=== PATIENT | female | born 1945 | race Caucasian/White ===

== ENCOUNTER 2017-12-06 05:37 | Inpatient (IN) ==
[2017-12-09 11:48] VITALS: BP 128/61
== END 2017-12-09 12:30 | DRG 470 ==
LOC: N.OR 05:37 → N.SDSINP 06:30 → N.3E 11:59
PROVIDERS: ADMIT Orthopaedic Surgery; ATTEND Orthopaedic Surgery

== ENCOUNTER 2019-11-05 14:16 | Inpatient (IN) ==
[2019-11-05 15:30] LABS: Basophils % 0.1 % (0.0-0.8); Eosinophils # 0.3 10*3/uL (0.0-0.87); Eosinophils % 4.1 % (0.00-10.9); Immature Granulocytes % 1.2 %; Immature Granulocytes Absolute 0.09 #; Lymphocytes # 1.6 10*3/uL (1.4-4.0); Mean Corpuscular HGB Conc 27.2 GM/DL (32-36); Mean Corpuscular Volume 86.3 FL (87-102); Mean Platelet Volume 9.8 FL (9.6-12.0); Monocytes % 10.8 % (1.7-12.7); NRBC # 0.02 10*3/uL; Neutrophils % 62.8 % (38.7-73.9); Platelet Count 184 T/CUMM (130-400); Red Blood Count 1.75 MC/CUMM (3.8-5.5); Red Cell Distribution Width 16.6 % (9.3-17.3); White Blood Count 7.8 T/CUMM (4-12)
[2019-11-05 15:38] LABS: INR 1.4; PT Patient Result 14.6 SECS (9.8-11.9)
[2019-11-05 15:40] LABS: Hematocrit 15.1 VOL% (35.7-47.0); Hemoglobin 4.1 GM/DL (12.0-16.0)
[2019-11-05 15:47] LABS: Calcium 8.4 MG/DL (8.5-10.1); Osmolality,Calculated 288.4 MOS/KG (273-304)
[2019-11-05] MEDS ORDERED: GLUCAGON 1 MG VIAL IM PRN (20:34)
[2019-11-05] MEDS ORDERED: DEXTROSE 10% 250 ML BAG IV PRN (20:34)
[2019-11-05] MEDS ORDERED: ACETAMINOPHEN 325 MG TABLET PO PRN (20:34)
[2019-11-05] MEDS ORDERED: ONDANSETRON 4 MG/2 ML VIAL IV PRN (20:34)
[2019-11-05] MEDS: SODIUM CHLORIDE 0.9% 1,000 ML IV SCH (20:58)
[2019-11-05] MEDS ORDERED: FUROSEMIDE 20 MG/2 ML VIAL IV SCH (21:00)
[2019-11-05] MEDS ORDERED: PANTOPRAZOLE INJ 200 MG in SODIUM CHLORIDE 0.9% 250 ML IV SCH (21:00)
[2019-11-05] MEDS ORDERED: SODIUM CHLORIDE 0.9% 1,000 ML IV PRN ×3 (22:41→23:27)
[2019-11-05] MEDS: INSULIN LISPRO 100 UNIT/ML SUBCUT SCH (23:12)
[2019-11-06 01:42] LABS: Basophils % 0.2 % (0.0-0.8); Eosinophils # 0.5 10*3/uL (0.0-0.87); Eosinophils % 5.3 % (0.00-10.9); Immature Granulocytes % 0.6 %; Immature Granulocytes Absolute 0.06 #; Lymphocytes # 2.2 10*3/uL (1.4-4.0); Lymphocytes % 22.1 % (21.3-54.2); Mean Corpuscular HGB Conc 28.1 GM/DL (32-36); Mean Corpuscular Volume 83.6 FL (87-102); Mean Platelet Volume 9.9 FL (9.6-12.0); Monocytes % 11.3 % (1.7-12.7); NRBC # 0.02 10*3/uL; Neutrophils % 60.5 % (38.7-73.9); Platelet Count 199 T/CUMM (130-400); Red Blood Count 1.83 MC/CUMM (3.8-5.5); Red Cell Distribution Width 16.6 % (9.3-17.3); White Blood Count 9.8 T/CUMM (4-12)
[2019-11-06 01:48] LABS: Hematocrit 15.3 VOL% (35.7-47.0); Hemoglobin 4.3 GM/DL (12.0-16.0)
[2019-11-06 02:06] LABS: Calcium 8.3 MG/DL (8.5-10.1); Osmolality,Calculated 286.4 MOS/KG (273-304)
[2019-11-06 04:58] LABS: Hypochromasia 1+; Microcytosis 1+
[2019-11-06 04:59] LABS: Anisocytosis 1+; Ovalocytes Few; Platelet Estimate Adequate; Tear Drop Cells Slight
[2019-11-06] MEDS: INSULIN LISPRO 100 UNIT/ML SUBCUT SCH ×4 (10:34→21:18)
[2019-11-06 14:37] LABS: Hematocrit 27.4 VOL% (35.7-47.0); Hemoglobin 8.4 GM/DL (12.0-16.0)
[2019-11-06] MEDS ORDERED: tiZANidine 4 MG TABLET PO PRN (14:48)
[2019-11-06] MEDS: GABAPENTIN 300 MG CAPSULE PO SCH (17:08)
[2019-11-06] MEDS: carvediloL 12.5 MG TABLET PO SCH (17:09)
[2019-11-06] MEDS: SODIUM CHLORIDE 0.9% 1,000 ML IV SCH (18:17)
[2019-11-06] MEDS: PRAMIPEXOLE 0.25 MG TABLET PO SCH (21:19)
[2019-11-06] MEDS: FERROUS SULFATE 325 MG TABLET PO SCH (21:19)
[2019-11-06] MEDS: PANTOPRAZOLE 40 MG VIAL IV SCH (21:19)
[2019-11-07] MEDS: SODIUM CHLORIDE 0.9% 1,000 ML IV SCH (01:49)
[2019-11-07] MEDS: LEVOTHYROXINE 112 MCG TABLET PO SCH (05:42)
[2019-11-07 06:48] LABS: Basophils % 0.3 % (0.0-0.8); Eosinophils # 0.3 10*3/uL (0.0-0.87); Eosinophils % 3.7 % (0.00-10.9); Hematocrit 26.4 VOL% (35.7-47.0); Hemoglobin 7.8 GM/DL (12.0-16.0); Immature Granulocytes % 0.9 %; Immature Granulocytes Absolute 0.08 #; Lymphocytes # 1.1 10*3/uL (1.4-4.0); Lymphocytes % 12.8 % (21.3-54.2); Mean Corpuscular HGB Conc 29.5 GM/DL (32-36); Mean Corpuscular Volume 85.7 FL (87-102); Mean Platelet Volume 10.4 FL (9.6-12.0); Neutrophils % 74.3 % (38.7-73.9); Platelet Count 139 T/CUMM (130-400); Red Blood Count 3.08 MC/CUMM (3.8-5.5); Red Cell Distribution Width 16.1 % (9.3-17.3); White Blood Count 8.9 T/CUMM (4-12)
[2019-11-07 07:08] LABS: Calcium 7.5 MG/DL (8.5-10.1); Osmolality,Calculated 284.3 MOS/KG (273-304)
[2019-11-07] MEDS ORDERED: ALBUTEROL/IPRATROPIUM 3 ML NEB RESP TX PRN (08:50)
[2019-11-07] MEDS: INSULIN LISPRO 100 UNIT/ML SUBCUT SCH ×4 (09:38→21:37)
[2019-11-07] MEDS: LOSARTAN 50 MG TABLET PO SCH (09:39)
[2019-11-07] MEDS: carvediloL 12.5 MG TABLET PO SCH ×2 (09:39→16:25)
[2019-11-07] MEDS: FERROUS SULFATE 325 MG TABLET PO SCH ×2 (09:39→21:37)
[2019-11-07] MEDS: TAMOXIFEN 10 MG TABLET PO SCH (09:40)
[2019-11-07] MEDS: PANTOPRAZOLE 40 MG VIAL IV SCH ×2 (09:42→21:37)
[2019-11-07] MEDS: FUROSEMIDE 40 MG/4 ML VIAL IV SCH (09:45)
[2019-11-07] MEDS: GABAPENTIN 300 MG CAPSULE PO SCH (16:25)
[2019-11-07] MEDS: PRAMIPEXOLE 0.25 MG TABLET PO SCH (21:37)
[2019-11-08] MEDS: LEVOTHYROXINE 112 MCG TABLET PO SCH (06:16)
[2019-11-08] MEDS ORDERED: FUROSEMIDE 40 MG/4 ML VIAL IV SCH (09:00)
[2019-11-08] MEDS: INSULIN LISPRO 100 UNIT/ML SUBCUT SCH ×4 (09:47→21:52)
[2019-11-08] MEDS: FERROUS SULFATE 325 MG TABLET PO SCH ×2 (09:48→21:53)
[2019-11-08] MEDS: guaiFENesin 200 MG/10 ML UDCUP PO SCH ×2 (09:48→17:14)
[2019-11-08] MEDS: carvediloL 12.5 MG TABLET PO SCH ×2 (09:48→17:10)
[2019-11-08] MEDS: TAMOXIFEN 10 MG TABLET PO SCH (09:48)
[2019-11-08] MEDS: LOSARTAN 50 MG TABLET PO SCH (09:48)
[2019-11-08] MEDS: PANTOPRAZOLE 40 MG VIAL IV SCH ×2 (09:51→21:53)
[2019-11-08] MEDS: FUROSEMIDE 40 MG/4 ML VIAL IV SCH (09:56)
[2019-11-08] MEDS: GABAPENTIN 300 MG CAPSULE PO SCH (17:10)
[2019-11-08] MEDS: PRAMIPEXOLE 0.25 MG TABLET PO SCH (21:53)
[2019-11-09] MEDS: guaiFENesin 200 MG/10 ML UDCUP PO SCH ×2 (00:55→08:13)
[2019-11-09] MEDS: LEVOTHYROXINE 112 MCG TABLET PO SCH (05:47)
[2019-11-09 06:21] LABS: Basophils % 0.4 % (0.0-0.8); Eosinophils # 0.4 10*3/uL (0.0-0.87); Eosinophils % 6.3 % (0.00-10.9); Hematocrit 27.5 VOL% (35.7-47.0); Immature Granulocytes % 0.6 %; Immature Granulocytes Absolute 0.04 #; Lymphocytes # 1.3 10*3/uL (1.4-4.0); Lymphocytes % 19.9 % (21.3-54.2); Mean Corpuscular HGB Conc 29.1 GM/DL (32-36); Mean Corpuscular Volume 87.3 FL (87-102); Monocytes % 10.8 % (1.7-12.7); Platelet Count 138 T/CUMM (130-400); Red Blood Count 3.15 MC/CUMM (3.8-5.5); Red Cell Distribution Width 16.4 % (9.3-17.3); White Blood Count 6.7 T/CUMM (4-12)
[2019-11-09 06:52] LABS: Calcium 7.8 MG/DL (8.5-10.1); Osmolality,Calculated 282.3 MOS/KG (273-304)
[2019-11-09] MEDS: INSULIN LISPRO 100 UNIT/ML SUBCUT SCH ×2 (08:12→11:58)
[2019-11-09] MEDS: TAMOXIFEN 10 MG TABLET PO SCH (08:13)
[2019-11-09] MEDS: carvediloL 12.5 MG TABLET PO SCH (08:13)
[2019-11-09] MEDS: FUROSEMIDE 40 MG/4 ML VIAL IV SCH (08:13)
[2019-11-09] MEDS: PANTOPRAZOLE 40 MG VIAL IV SCH (08:13)
[2019-11-09] MEDS: LOSARTAN 50 MG TABLET PO SCH (08:14)
[2019-11-09] MEDS: FERROUS SULFATE 325 MG TABLET PO SCH (08:14)
[2019-11-09 11:53] VITALS: BP 145/62
[2019-11-11] MEDS ORDERED: BISACODYL 5 MG TABLET PO ONE (12:00)
[2019-11-11] MEDS ORDERED: POLYETHYLENE GLYCOL POWDER 255 GM BOTTLE PO ONE (18:00)
[2019-11-12] MEDS ORDERED: LACTATED RINGERS 1,000 ML IV SCH (12:30)
== END 2019-11-09 14:17 | disposition home health service (06) | DRG 803 ==
LOC: N.ED 14:16 → SUATTDRO 20:34 → N.EDINP 20:34 → N.TELEN 11-06 00:43
PROVIDERS: ADMIT Emergency Medicine; ATTEND Internal Medicine

== ENCOUNTER 2019-12-11 06:01 | Inpatient (IN) ==
[2019-12-05 16:23] LABS: Basophils # 0.1 10*3/uL (0.0-0.2); Basophils % 0.8 % (0.0-0.8); Eosinophils # 0.6 10*3/uL (0.0-0.87); Eosinophils % 6.9 % (0.00-10.9); Hematocrit 33.3 VOL% (35.7-47.0); Hemoglobin 9.7 GM/DL (12.0-16.0); Immature Granulocytes % 0.4 %; Immature Granulocytes Absolute 0.04 #; Lymphocytes # 2.5 10*3/uL (1.4-4.0); Lymphocytes % 26.9 % (21.3-54.2); Mean Corpuscular HGB Conc 29.1 GM/DL (32-36); Mean Corpuscular Volume 83.9 FL (87-102); Mean Platelet Volume 10.2 FL (9.6-12.0); Monocytes % 10.5 % (1.7-12.7); Neutrophils % 54.5 % (38.7-73.9); Platelet Count 236 T/CUMM (130-400); Red Blood Count 3.97 MC/CUMM (3.8-5.5); Red Cell Distribution Width 15.2 % (9.3-17.3); White Blood Count 9.2 T/CUMM (4-12)
[~2019-12-11 06:01] MED LIST: ALVIMOPAN 12 MG CAPSULE ONE; ALVIMOPAN 12 MG CAPSULE PO ONE; ERTAPENEM 1,000 MG VIAL ONE; ERTAPENEM 1,000 MG in SODIUM CHLORIDE 0.9% 100 ML IV ONE
[2019-12-11] MEDS ORDERED: ROPIVACAINE 0.5% 30 ML VIAL ONE (06:28)
[2019-12-11] MEDS ORDERED: DEXAMETHASONE 4 MG/1 ML VIAL ONE (06:29)
[2019-12-11] MEDS ORDERED: LIDOCAINE 1% 5 ML VIAL ONE (06:29)
[2019-12-11] MEDS ORDERED: LACTATED RINGERS 1,000 ML IV SCH (07:00)
[2019-12-11] MEDS ORDERED: PHENYLEPHRINE 10 MG/1 ML VIAL IV ONE (07:51)
[2019-12-11] MEDS ORDERED: INDOCYANINE GREEN 25 MG VIAL IV ONE (07:52)
[2019-12-11] MEDS ORDERED: TISSUE ADHESIVE 1 EACH APPLICATOR TOP ONE (09:00)
[2019-12-11 09:25] LABS: Apearance,Urine CLEAR (Clear); Bilirubin,Urine Negative (Negative); Blood, Urine Negative (Negative); Glucose,Urine (UA) 150 mg/dL (Negative); Hyaline Casts,Urine 6 /LPF (0-3); Ketones,Urine Negative (Negative); Mucus,Urine Occasional /LPF (Occasional); Nitrite,Urine Negative (Negative); Protein,Urine Negative; Squamous Epithelial Cell,Urine Occasional /HPF (0-10); Urine Color Yellow (Yellow); Urine Specific Gravity 1.011 (1.001-1.035); Urine Urobilinogen < 2.0 EU/DL (0.2-1.0)
[2019-12-11] MEDS ORDERED: ALBUMIN 5% 12.5 GM/250 ML VIAL IV ONE (09:28)
[2019-12-11] MEDS ORDERED: SEVOFLURANE 1 UNIT/15 MINUTE INH ONE (09:28)
[2019-12-11] MEDS ORDERED: LIDOCAINE 2% 5 ML VIAL ONE (09:28)
[2019-12-11] MEDS ORDERED: MIDAZOLAM 2 MG/2 ML VIAL ONE (09:28)
[2019-12-11] MEDS ORDERED: propofoL 200 MG/20 ML VIAL IV ONE (09:28)
[2019-12-11] MEDS ORDERED: fentaNYL 250 MCG/5 ML VIAL ONE (09:28)
[2019-12-11] MEDS ORDERED: ONDANSETRON 4 MG/2 ML VIAL IV PRN ×2 (09:29→10:55)
[2019-12-11] MEDS ORDERED: HYDROmorphone 2 MG/1 ML VIAL IV PRN ×2 (09:29→10:55)
[2019-12-11] MEDS ORDERED: ePHEDrine 50 MG/ML VIAL ONE (09:29)
[2019-12-11] MEDS ORDERED: NEOSTIGMINE 10 MG/10 ML VIAL ONE (09:29)
[2019-12-11] MEDS ORDERED: PROMETHAZINE INJ 25 MG in SODIUM CHLORIDE 0.9% 50 ML IV PRN (09:29)
[2019-12-11] MEDS ORDERED: GLYCOPYRROLATE 0.4 MG/2 ML VIAL ONE (09:29)
[2019-12-11] MEDS ORDERED: ROCURONIUM 100 MG/10 ML VIAL IV ONE (09:29)
[2019-12-11] MEDS ORDERED: SUCCINYLCHOLINE 200 MG/10 ML VIAL ONE (09:29)
[2019-12-11] MEDS ORDERED: diphenhydrAMINE 50 MG/1 ML VIAL IV PRN (09:29)
[2019-12-11] MEDS ORDERED: PHENYLEPHRINE 1 MG/10 ML SYRINGE IV ONE (09:29)
[2019-12-11] MEDS ORDERED: MEPERIDINE 25 MG/1 ML VIAL ONE ×2 (09:56→10:22)
[2019-12-11] MEDS ORDERED: ONDANSETRON 4 MG/2 ML VIAL ONE (09:56)
[2019-12-11] MEDS: MEPERIDINE 25 MG/1 ML VIAL IV PRN ×2 (10:00→10:25)
[2019-12-11] MEDS ORDERED: PROMETHAZINE 25 MG/1 ML VIAL ONE (10:22)
[2019-12-11] MEDS ORDERED: GLUCAGON 1 MG VIAL IM PRN (10:55)
[2019-12-11] MEDS ORDERED: DEXTROSE 50% 25 GM/50 ML VIAL IV PRN (10:55)
[2019-12-11] MEDS ORDERED: tiZANidine 4 MG TABLET PO PRN (10:55)
[2019-12-11] MEDS ORDERED: BETAMETHASONE VALERATE 0.1% CREAM 15 GM TUBE TOP PRN (10:55)
[2019-12-11 11:42] LABS: Basophils % 0.3 % (0.0-0.8); Eosinophils # 0.2 10*3/uL (0.0-0.87); Eosinophils % 2.5 % (0.00-10.9); Hematocrit 32.2 VOL% (35.7-47.0); Hemoglobin 9.4 GM/DL (12.0-16.0); Immature Granulocytes % 0.4 %; Immature Granulocytes Absolute 0.03 #; Lymphocytes # 1.1 10*3/uL (1.4-4.0); Lymphocytes % 14.2 % (21.3-54.2); Mean Corpuscular HGB Conc 29.2 GM/DL (32-36); Mean Corpuscular Volume 84.3 FL (87-102); Mean Platelet Volume 10.2 FL (9.6-12.0); Monocytes % 2.6 % (1.7-12.7); Platelet Count 135 T/CUMM (130-400); Red Blood Count 3.82 MC/CUMM (3.8-5.5); Red Cell Distribution Width 16.3 % (9.3-17.3); White Blood Count 7.6 T/CUMM (4-12)
[2019-12-11 11:57] LABS: Calcium 8.3 MG/DL (8.5-10.1); Osmolality,Calculated 277.8 MOS/KG (273-304)
[2019-12-11] MEDS: KETOROLAC 15 MG/1 ML VIAL IV SCH ×3 (12:10→21:55)
[2019-12-11] MEDS: INSULIN REGULAR 100 UNIT/ML SUBCUT SCH ×3 (12:10→20:52)
[2019-12-11] MEDS: LACTATED RINGERS 1,000 ML IV SCH (16:56)
[2019-12-11] MEDS: POTASSIUM CHLORIDE 20 MEQ TABLET PO SCH (20:51)
[2019-12-11] MEDS: ALVIMOPAN 12 MG CAPSULE PO SCH (20:51)
[2019-12-11] MEDS: carvediloL 12.5 MG TABLET PO SCH (20:51)
[2019-12-11] MEDS: GABAPENTIN 300 MG CAPSULE PO SCH (20:52)
[2019-12-11] MEDS: FERROUS SULFATE 325 MG TABLET PO SCH (20:52)
[2019-12-12] MEDS ORDERED: ENOXAPARIN 40 MG/0.4 ML SYRINGE SUBCUT SCH (03:19)
[2019-12-12] MEDS: LACTATED RINGERS 1,000 ML IV SCH (03:54)
[2019-12-12] MEDS: KETOROLAC 15 MG/1 ML VIAL IV SCH ×2 (05:31→11:18)
[2019-12-12 06:13] LABS: Basophils % 0.2 % (0.0-0.8); Eosinophils # 0.1 10*3/uL (0.0-0.87); Eosinophils % 0.7 % (0.00-10.9); Hematocrit 27.4 VOL% (35.7-47.0); Hemoglobin 8.2 GM/DL (12.0-16.0); Immature Granulocytes % 0.5 %; Immature Granulocytes Absolute 0.06 #; Lymphocytes # 1.4 10*3/uL (1.4-4.0); Lymphocytes % 11.6 % (21.3-54.2); Mean Corpuscular HGB Conc 29.9 GM/DL (32-36); Mean Corpuscular Volume 82.8 FL (87-102); Mean Platelet Volume 10.6 FL (9.6-12.0); Monocytes % 4.5 % (1.7-12.7); Neutrophils % 82.5 % (38.7-73.9); Platelet Count 144 T/CUMM (130-400); Red Blood Count 3.31 MC/CUMM (3.8-5.5); Red Cell Distribution Width 16.5 % (9.3-17.3); White Blood Count 12.1 T/CUMM (4-12)
[2019-12-12 06:35] LABS: Band Neutrophils 17 % (0-10); Eosinophils 1 % (0-10); Lymphocytes 6 % (20-55); Metamyelocytes 1 %; Segmented Neutrophils 71 % (50-85); Total Cells Counted 100
[2019-12-12 06:36] LABS: Hypochromasia 2+; Microcytosis 1+
[2019-12-12 06:37] LABS: Ovalocytes Few; Platelet Estimate Adequate
[2019-12-12 06:45] LABS: Calcium 7.9 MG/DL (8.5-10.1); Osmolality,Calculated 273.1 MOS/KG (273-304)
[2019-12-12] MEDS ORDERED: ASPIRIN EC 81 MG TABLET PO SCH (09:00)
[2019-12-12] MEDS ORDERED: VITAMIN E 400 UNIT CAPSULE PO SCH (09:00)
[2019-12-12] MEDS ORDERED: LEVOTHYROXINE 112 MCG TABLET PO SCH (09:00)
[2019-12-12] MEDS ORDERED: FOLIC ACID 0.4 MG TABLET PO SCH (09:00)
[2019-12-12] MEDS ORDERED: CALCIUM (CARBONATE)/VITAMIN D 600 MG-400 UNIT TABLET PO SCH (09:00)
[2019-12-12] MEDS ORDERED: CITALOPRAM 20 MG TABLET PO SCH (09:00)
[2019-12-12] MEDS ORDERED: MAGNESIUM CHLORIDE 64 MG TABLET PO SCH (09:00)
[2019-12-12] MEDS ORDERED: MULTIVITAMIN (CENTRUM) TABLET PO SCH (09:00)
[2019-12-12] MEDS ORDERED: TAMOXIFEN 10 MG TABLET PO SCH (09:00)
[2019-12-12] MEDS ORDERED: PRAMIPEXOLE 0.25 MG TABLET PO SCH (09:00)
[2019-12-12] MEDS ORDERED: amLODIPine 10 MG TABLET PO SCH (09:00)
[2019-12-12 10:13] LABS: Hematocrit 28.6 VOL% (35.7-47.0); Hemoglobin 8.6 GM/DL (12.0-16.0)
[2019-12-12] MEDS: INSULIN REGULAR 100 UNIT/ML SUBCUT SCH ×2 (10:34→12:13)
[2019-12-12] MEDS: ALVIMOPAN 12 MG CAPSULE PO SCH (10:36)
[2019-12-12] MEDS: GABAPENTIN 300 MG CAPSULE PO SCH (10:36)
[2019-12-12] MEDS: carvediloL 12.5 MG TABLET PO SCH (10:39)
[2019-12-12] MEDS: FERROUS SULFATE 325 MG TABLET PO SCH (10:40)
[2019-12-12] MEDS: POTASSIUM CHLORIDE 20 MEQ TABLET PO SCH (10:41)
[2019-12-12 12:11] VITALS: BP 127/58
== END 2019-12-12 15:12 | disposition home health service (06) | DRG 330 ==
LOC: N.4E 06:01 → N.OR 06:01 → N.SDSINP 06:01 → EDSTATUS 07:30 → N.4E 10:42
PROVIDERS: ADMIT Surgery; ATTEND Surgery